=== PATIENT | female | born 1950 | race Caucasian/White ===

== ENCOUNTER 2019-02-18 16:26 | Emergency (ER) | payer MEDICARE ==
[~2019-02-18 16:26] MED LIST: ATIVAN0.5 MG PO; BUDEPRION XL150 MG PO; BUPROPION HCL150 M2 PO; COZAAR100 MG PO; CRESTOR20 M1 PO; CYMBALTA60 MG PO; DULOXETINE HCL60 MG PO; PROTONIX TR40 MG PO; VITAMIN D32000 UNIT PO
[2019-02-18 17:01] LABS: BASO % 0.7 % (0.0-1.0); EOS # 0.1 10*3/uL (0.0-0.4); EOS % 1.8 % (1.0-4.0); HEMATOCRIT 44.1 % (37.0-47.0); HEMOGLOBIN 15.3 g/dl (12.0-16.0); LYMPH # 1.2 10*3/uL (1.3-4.4); LYMPH % 21.1 % (27.0-41.0); MEAN CELL VOLUME 89.1 fl (81.0-99.0); MEAN CORPUSCULAR HGB 30.9 pg (27.0-31.0); MEAN CORPUSCULAR HGB CONC 34.7 g/dl (33.0-37.0); MEAN PLATELET VOLUME 10.2 fl (9.6-12.3); MONO # 0.4 10*3/uL (0.1-1.0); MONO % 7.7 % (3.0-9.0); NEUT # 3.9 10*3/uL (2.3-7.9); NEUT % 68.5 % (47.0-73.0); PLATELET COUNT AUTOMATED 113 10*3/uL (130-400); RED BLOOD COUNT 4.95 10*6/uL (4.10-5.10); RED CELL DISTRI WIDTH 12.4 % (0-14.5); WHITE BLOOD COUNT 5.7 10*3/uL (4.8-10.8)
[2019-02-18 17:16] LABS: ALBUMIN 4.2 gm/dl (3.1-4.5); ALKALINE PHOSPHATASE 80 U/L (45-117); BUN 17 mg/dl (7-24); CHLORIDE 109 mmol/L (98-107); CREATININE 1.12 mg/dL (0.55-1.02); POTASSIUM 3.7 mmol/L (3.5-5.1); SGOT/AST 48 IU/L (3-35); SGPT/ALT 76 U/L (12-78); SODIUM 141 mmol/L (136-145); TOTAL PROTEIN 6.7 gm/dL (6.4-8.2)
[2019-02-18 17:24] LABS: ETHYL ALCOHOL < 3.0 mg/dl (<3)
[2019-02-18 18:27] LABS: BILIRUBIN NEGATIVE (NEGATIVE); BLOOD NEGATIVE (NEGATIVE); CLARITY CLEAR (CLEAR); COLOR YELLOW (YELLOW); GLUCOSE NEGATIVE (NEGATIVE); KETONE 1+ (NEGATIVE); LEUKO ESTERASE 1+ (NEGATIVE); NITRITE NEGATIVE (NEGATIVE); SPECIFIC GRAVITY >= 1.030 (1.005-1.030)
[2019-02-18 18:35] LABS: BACTERIA 2+; CALCIUM OXALATE CRYSTALS 1+; MUCOUS TRACE; RBC 0-2 rbc/hpf (0-2); WBC 16-20 wbc/hpf (0-5)
[2019-02-18 19:04] LABS: URINE AMPHETAMINES < 1000 (1000ng/ml); URINE BARBITURATES < 200 (200ng/ml); URINE BENZODIAZEPINES > 200 (200ng/ml); URINE CANNABINOIDS (THC) < 50 (50ng/ml); URINE COCAINE < 300 (300ng/ml); URINE METHADONE < 300 (300ng/ml); URINE OPIATES < 300 (300ng/ml)
[2019-02-18 19:14] LABS: URINE PHENCYCLIDINE < 25 (25ng/ml)
[2019-03-01] MEDS ORDERED: CLONAZEPAM0.5 M2 PO (08:31)
[2019-03-01] MEDS ORDERED: ARIPIPRAZOLE10 MG PO (08:31)
[2019-03-01] MEDS ORDERED: DULOXETINE HCL60 MG PO (08:31)
[2019-03-01] MEDS ORDERED: BUDEPRION XL150 MG PO (08:31)
== END 2019-02-19 00:18 | disposition home health service (06) ==
LOC: ED 16:26
PROVIDERS: Emergency Medicine
DX: F32.9 Major depressive disorder, single episode, unspecified (principal); F41.9 Anxiety disorder, unspecified; F44.9 Dissociative and conversion disorder, unspecified; I25.10 Atherosclerotic heart disease of native coronary artery without angina pectoris; I10 Essential (primary) hypertension; E78.5 Hyperlipidemia, unspecified; K21.9 Gastro-esophageal reflux disease without esophagitis; Z79.899 Other long term (current) drug therapy

== ENCOUNTER 2019-07-19 15:55 | Inpatient (IN) | payer MEDICARE ==
[~2019-07-19] VITALS: Ht 167.6 cm; Wt 87.5 kg
[~2019-07-19 15:55] MED LIST changes: +ARIPIPRAZOLE10 MG PO; +CLONAZEPAM0.5 M2 PO
--- NOTE | 2019-07-19 16:15 | NUR ---
ASHANTI THIBODEAUX She a 69 year old F admitted via wheel chair from the EMERGENCY ROOM as a voluntary admission. Arrived on unit at 1615. ALLERGIES: NKA. Vital signs are: 97.1-86-18 150/90 SPO2 96%RA. The client signed the following forms with stated understanding: Authorization For The Release of Medical Information, Clothing List, Consent to Voluntary Admission and Hospitalization, Consent and Release Forms/Receipt of Rights, Acknowledgement of Advance Directive Information, Behavioral Health Consent Form, and Informed Consent of Medications. Admitted under the services of Dr. NENA KNIGHT,[facility]. A search was conducted and hazardous articles were removed. Client was oriented to the unit. CYN HUTCHISON
[2019-07-19] MEDS ORDERED: REXULTI0.5 MG PO (16:38)
[2019-07-19 16:51] VITALS: BP 150/90
[2019-07-19 17:02] VITALS: BP 150/90
--- NOTE | 2019-07-19 17:22 | NUR ---
HOSPITALIST NUMBER ONE MADE AWARE OF NEW CONSULT FOR MEDICAL MANAGEMENT.
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
[2019-07-19 19:45] VITALS: BP 152/89
--- NOTE | 2019-07-19 20:27 | NUR ---
PM/EVENING PT LATE ADMIT UNABLE TO ATTEND PM DUE TO NOT BEING ADMITTED UNTIL AFTER. PT CHOSE NOT TO ATTEND EVENING GROUP AND STATED "4 HOURS OF SLEEP IS NOT ENOUGH I NEED TO GET SOME REST" PT ASSESSMENT COMPLETED PRIOR TO EVENING GROUP. PT WILL BE ENOCURAGED TO ATTEND AN DPARTICIPATE IN AM GROUP.
--- NOTE | 2019-07-20 00:14 | NUR ---
24 HR chart check completed.
--- NOTE | 2019-07-20 05:06 | NUR ---
PT SLEPT 7 HOURS.
[2019-07-20 06:40] LABS: BASO % 1.1 % (0.0-1.0); EOS # 0.1 10*3/uL (0.0-0.4); EOS % 3.7 % (1.0-4.0); HEMATOCRIT 42.4 % (37.0-47.0); HEMOGLOBIN 13.9 g/dl (12.0-16.0); LYMPH # 1.1 10*3/uL (1.3-4.4); LYMPH % 28.2 % (27.0-41.0); MEAN CELL VOLUME 91.4 fl (81.0-99.0); MEAN CORPUSCULAR HGB CONC 32.8 g/dl (33.0-37.0); MEAN PLATELET VOLUME 9.8 fl (9.6-12.3); MONO # 0.4 10*3/uL (0.1-1.0); MONO % 9.7 % (3.0-9.0); NEUT # 2.2 10*3/uL (2.3-7.9); NEUT % 57.3 % (47.0-73.0); PLATELET COUNT AUTOMATED 107 10*3/uL (130-400); RED BLOOD COUNT 4.64 10*6/uL (4.10-5.10); RED CELL DISTRI WIDTH 12.5 % (0-14.5); WHITE BLOOD COUNT 3.8 10*3/uL (4.8-10.8)
[2019-07-20 06:50] LABS: ALBUMIN 3.8 gm/dl (3.1-4.5); CREATININE 1.17 mg/dL (0.55-1.02); POTASSIUM 3.8 mmol/L (3.5-5.1); TOTAL PROTEIN 6.5 gm/dL (6.4-8.2)
[2019-07-20 06:59] LABS: THYROID STIM HORMONE (HS) 1.95 uIU/ml (0.358-4.75)
--- NOTE | 2019-07-20 07:15 | NUR ---
URINE SPECIMEN COLLECTED. URINE YELLOW WITH NO ODOR NOTED. URINE OUTPUT OF 150ML. PATIENT WITH NO COMPLAINTS OF DYSURIA
[2019-07-20 07:46] VITALS: BP 144/76
[2019-07-20 07:50] LABS: VITAMIN D, 25-HYDROXY 34.3 ng/mL (30-100)
[2019-07-20 08:00] LABS: URINE AMPHETAMINES < 1000 (1000ng/ml); URINE BARBITURATES < 200 (200ng/ml); URINE BENZODIAZEPINES < 200 (200ng/ml); URINE CANNABINOIDS (THC) < 50 (50ng/ml); URINE COCAINE < 300 (300ng/ml); URINE METHADONE < 300 (300ng/ml); URINE OPIATES < 300 (300ng/ml)
[2019-07-20 08:03] LABS: URINE PHENCYCLIDINE < 25 (25ng/ml)
--- NOTE | 2019-07-20 08:15 | NUR ---
Treatment Plan meeting was held this a.m. with Dr. Boo, RN, AT, HOGSHEAD FILLER-S and Carpet Layer Helper in attendance. Plan for discharge at the end of the week. Pt. came to [facility] from Home and will return home at Discharge.
--- NOTE | 2019-07-20 10:48 | NUR ---
DR BUENROSTRO AND TEAM ON UNIT TO SEE PATIENT
--- NOTE | 2019-07-20 11:24 | NUR ---
P-TEARFUL, ISOLATIVE, WITHDRAWN I-REDIRECTION WITH 1:1 THERAPEUTIC INTERVENIONS AND PRESENT REALITY. EDUCATE AND ENCOURAGE MEDICATION COMPLIANCE R-PATIENT SHOWERED THIS SHIFT. PATIENT ISOLATIVE TO ROOM THROUGHOUT SHIFT. PATIENT TEARFUL AT TIMES THROUGHOUT SHIFT. PATIENT WITH DEPRESSED MOOD BUT STATES "I FEEL A LITTLE BETTER RIGHT NOW AND I'M HERE TO GET THE HELP I NEED". PATIENT NOT WANTING TO DISCUSS ISSUES WITH HER FIANCE AT THIS TIME. PATIENT CONTINUES ON LEVAQUIN PO FOR +UTI. NO ADVERSE REACTION. PATIENT MEDICATION COMPLIANT P-CONTINUE TO ENCOURAGE MEDICATION COMPLIANCE, ENCOURAGE GROUP THERAPY WHILE AWAKE
--- NOTE | 2019-07-20 11:47 | NUR ---
AM GROUP/CURRENT EVENTS PT CHOSE NOT TO ATTEND MORNING GROUP THERAPY. PT STAYED IN BED NAPPING
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
--- NOTE | 2019-07-20 17:30 | NUR ---
PATIENT VERBALIZED HAVING INCREASED ANXIETY AND UNABLE TO STOP CRYING. PATIENT REQUESTED MEDICATION FOR ANXIETY. PATIENT MEDICATED WITH ATIVAN 1MG PO AND MEDICATION WITH EFFECTIVE RESULTS AT THIS TIME
[2019-07-20 19:52] VITALS: BP 143/84
--- NOTE | 2019-07-21 03:11 | NUR ---
P: POOR COPING SKILLS, ISOLATIVE, I &R : TALKED WITH PT THIS EVENING IN REFERENCE TO WHAT SHE VIEWS FOR HER OWN SELF WORTH WITHOUT HER FIANCE OR ANYONE ELSE BEING INVOLVED. PT STATED THAT SHE MAKES HER FRIENDS LAUGH AND IS KNOWN FOR BEING HAPPY, BUT ADMITTED THAT SHE DOES THAT TO COVER UP HER OWN SADNESS. SHE ADMITTED THAT HER FRIENDS ARE THERE FOR HER EVEN WHEN SHE IS DOWN. PT STATED THAT THIS IS NOT HOW SHE PICTURED HER LIFE AT THIS AGE, THIS NURSE ENCOURAGED HER TO LOOK TO HERSELF FOR HAPPINESS AND TO DECIDE WHAT SHE IS WILLING TO TOLERATED FROM THOSE AROUND HER. PT STATED SHE ISN'T HAPPY ABOUT SITUATION WITH FIANCE AND THAT HE DOES THIS FREQUENTLY TO HER, TELLING HER TO DO SHE PLEASES WITH THE HOUSE AND HE GOES AND WORKS OUTSIDE. PT STATED THAT SHE DOESN'T VALUE HERSELF AND NEEDS TO FIGURE OUT HOW TO DO SO. ENCOURAGED TO THINK AND WRITE THINGS DOWN. CONTINUE TO MONITOR. PT HAD NO TEARFUL EPISODES, SHE DID COME DOWN TO LOUNGE TO INTERACT WITH STAFF AND WATCH T.V. AFTER OTHER PEERS HAD GONE TO BED. PT STATED IT'S HARD BECAUSE THEY ARE WORSE OFF THEN HER. CONTINUE TO MONITOR 15 MIN CHECKS
--- NOTE | 2019-07-21 06:07 | NUR ---
PATIENT OBSERVED ON Q 15 MIN CHECKS TO HAVE SLEPT APPROX 7 HOURS WITH NO AWAKENINGS OR SIGNS AND SYMPTOMS OF DISTRESS NOTED.
[2019-07-21 07:29] VITALS: BP 129/82
--- NOTE | 2019-07-21 08:15 | NUR ---
Treatment Plan meeting was held this a.m. with Dr. Boo, RN, AT, EMPLOYEE TRAINING SPECIALIST-S and Director Of Contracts in attendance. Plan for discharge Next week. Pt. will return home at discharge with Follow Up.
--- NOTE | 2019-07-21 10:08 | NUR ---
P: PT ISOLATIVE TO ROOM AT TIMES THROUGHOUT THE DAY, REFUSING TO PARTICIPATE IN AM GROUP/ACTIVITIES. PT TEARFUL AT TIMES I: ENCOURAGE GROUP PARTICIPATION AND SOCIALIZATION, PROVIDE EMOTIONAL SUPPORT AND 1:1 FOR PT TO VOICE FEELINGS R: PT ALERT TO PERSON, PLACE AND TIME. PT MED COMPLIANT WITHOUT DIFFICULTY, MED EDUCATION PROVIDED. PT CONTINUES TO REFUSE TO PARTICIPATE IN AM GROUP/ACTIVITIES. PT DENIES ANY SUICIDAL THOUGHTS, VERBALLY CONTRACTS FOR SAFETY IF SUCH THOUGHTS ARISE. PT AMBULATORY THROUGHOUT UNIT, GAIT STEADY. PT CONTINENT OF BOWEL AND BLADDER. P: MONITOR PT BEHAVIORS ON Q15 MIN SAFETY CHECKS, ENCOURAGE MED COMPLIANCE AND PROVIDE MED EDUCATION, PROVIDE EMOTIONAL SUPPORT AND 1:1 FOR PT TO VOICE FEELINGS, ENCOURAGE GROUP PARTICIPATION AND SOCIALIZATION.
--- NOTE | 2019-07-21 10:31 | NUR ---
Met with pt this AM for individual therapeutic time. Pt reported that she continues to experience high anxiety and that she woke up hourly last night with racing thoughts. Discussed this further. Guided pt to discussion of codependency and provided a definition of such. Encouraged pt to keep an open mind about this possibility of being codependent and provided pt with the book Codependent No More. Encouraged pt to absorb the self-care aspect provided in the book. Also informed pt that Alma, shop coordinator, has video/audio available of Codependent No More that pt could be used by pt. Pt was agreeable to this.
--- NOTE | 2019-07-21 10:32 | NUR ---
DR. BUENROSTRO ON UNIT TO ASSESS PT, UPDATE PROVIDED.
--- NOTE | 2019-07-21 11:42 | NUR ---
AM GROUP/DOROTHY OSMAN PT DID NOT ATTEND MORNING GROUP THERAPY. PT WAS IN BED NAPPING
--- NOTE | 2019-07-21 15:39 | NUR ---
NEGIN WHEELER/DOROTHY OSMAN PT ATTENDED AFTERNOON GROUP THERAPY AND PARTICIPATED BY PLAYING Globevestor. PT LEFT GROUP EARLY TO MEET WITH HER SPEECH PATHOLOGY TEACHER. PT EXPRESSED NO ANXIOUS THOUGHTS OR SUICIDAL IDEATIONS WHILE IN GROUP
[2019-07-21 19:26] VITALS: BP 122/83
--- NOTE | 2019-07-22 01:50 | NUR ---
NO ADVERSE BEHAVIORS NOTED. PATIENT ALERT AND ORIENTED X4. PT CALM, COOPERATIVE, AND INTERACTIVE. MOOD STABLE. PT DENIES SI/HI AND HALLUCINATIONS. NO NOTED RESPONDING TO INTERNAL STIMULI. MEDICATION COMPLIANT WITHOUT DIFFICULTY AFTER REVIEW. NO PHYSICAL COMPLAINTS VOICED. PATIENT CURRENTLY LAYING DOWN WITH EYES CLOSED, RESPIRATIONS EASY AND REGULAR. NO SIGNS OR SYMPTOMS OF DISTRESS NOTED. PLAN IS TO CONTINUE TO MONITOR MOOD AND BEHAVIORS. PROVIDE 1:1 WITH SUPPORT NEEDED. ENCOURAGE MEDICATION COMPLIANCE. MAINTAIN Q 15 MIN CHECKS.
[2019-07-22 07:45] VITALS: BP 136/74
--- NOTE | 2019-07-22 11:49 | NUR ---
AM/EXERCISE/CRAFT/MUSIC PT ATTENDED AND PARTICIPATED IN ALL GROUP ACTIVITY'S. PT PLEASNAT AND ON TASK. PT JOKING AND SMILING. PT EXPRESSED NO S.I. OR ANXIETY AT THIS TIME. PT WILL CONTINUE TO ATTEND AND PARTICIPATE IN FUTURE GROUP ACTIVITY'S.
[2019-07-22 20:00] VITALS: BP 143/68
--- NOTE | 2019-07-23 04:16 | NUR ---
24 HR chart check completed.
--- NOTE | 2019-07-23 06:17 | NUR ---
SLEPT APPROX 7.5 HRS
--- NOTE | 2019-07-23 06:47 | NUR ---
EASILY AWAKENED FOR MEDICATION. DENIES SUICIDAL IDEATIONS AT THIS TIME.
[2019-07-23 07:44] VITALS: BP 148/87
--- NOTE | 2019-07-23 08:15 | NUR ---
Treatment Plan meeting was held this a.m. with Dr. Boo, RN, AT, SENIOR TECHNICAL RECRUITER-S and Anchor Tack Puller in attendance. Plan for discharge next week. Pt. will return home at discharge.
--- NOTE | 2019-07-23 11:02 | NUR ---
DR BHAGAT AND TEAM ON UNIT TO SEE PATIENT
--- NOTE | 2019-07-23 11:53 | NUR ---
AM GROUP/EXERCISE AND BRAIN GAMES PT ATTENDED MORNING GROUP THERAPY AND PARTICIPATED IN ALL ACTIVITIES. PT EXPRESSED NO SUICIDAL IDEATIONS NOR EXHIBITED ANY ANXIETY WHILE IN GROUP. PT WAS ANIMATED AND JOKING.
[2019-07-23 19:07] VITALS: BP 134/73
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
--- NOTE | 2019-07-24 04:15 | NUR ---
24 HR chart check completed.
--- NOTE | 2019-07-24 06:15 | NUR ---
SLEPT WELL PAST [id number]
[2019-07-24 07:49] VITALS: BP 141/62
--- NOTE | 2019-07-24 10:53 | NUR ---
DR. BHAGAT ON UNIT TO ASSESS PATIENT.
--- NOTE | 2019-07-24 11:59 | NUR ---
AM GROUP/DISCUSSION/COPING PT ATTENDED AND PARTICIPATED IN ALL GROUP ACTIVITY'S. PT PLEASANT AND ON TASK. PT EXPRESSES "I HAVE BEEN FEELING PRETTY GOOD LATELY". PT EXPRESSES NO SUICIDAL IDEATIONS OR ANXIETY AT THIS TIME. PT WILL CONTINUE TO BE ENCOURAGED TO ATTEND AN DPARTICIPATE IN FUTURE GROUP SESSIONS.
--- NOTE | 2019-07-24 15:21 | NUR ---
Shift chart check completed.
--- NOTE | 2019-07-24 15:54 | NUR ---
PM GROUP/LEISURE/FOOTBALL PT ATTENDED AND PARTICIPATED BY WORKING ON PROJECT FROM MORNING GROUP AND CONVERSATING WITH PEERS. PT PLEASANT WITH NO S.I. OR ANXIETY EXPRESSED. PT WILL CONTINUE TO ATTEND AN DPARTICIPATE IN GROUP SESSIONS.
--- NOTE | 2019-07-24 17:31 | NUR ---
P: DEPRESSED MOOD I: ONE ON ONE FOR EMOTIONAL SUPPORT AND ENCOURAGE GROUP SESSIONS AND SOCIAL INTERACTIONS R: EFFECTIVE. PATIENT IS ALERT TO PERSON, PLACE, TIME AND SITUATION; ABLE TO VOICE NEED. MOOD IS SLIGHTLY DEPRESSED, IMPROVEMENT NOTIFIED. DENIES ANY HALLUCINATIONS, DELUSIONS, HI/SI OR PAIN. INDEPENDENT WITH ACTIVITIES OF DAILY LIVING, CONTINENT OF BOWEL AND BLADDER. SET UP FOR MEALS, INTAKES ARE GOOD WITH ADEQUATE FLUIDS. MEDICATION COMPLAINT WITH EDUCATION. Q 15 MINUTE SAFETY CHECKS MAINTAINED. AMBULATORY WITH STEADY GAIT. INTERACTIVE WITH STAFF AND OTHER PATIENTS. ATTTENDS AND PARTICIPATE IN GROUP SESSION. P: CONTINUE TO MONITOR MOOD AND VOICED STATEMENT OF SI. PROVIDE ONE ON ONE FOR EMOTIONAL SUPPORT AND ENCOURAGE SOCIAL INTERACTIONS.
[2019-07-24 20:07] VITALS: BP 121/65
--- NOTE | 2019-07-24 21:57 | NUR ---
P CONFUSION, HOPELESS HELPLESS I ONE ON ONE REDIRECTION, ENCOURAGED SOCIALIZATION R PATIENT WATCHING TV IN DINING ROOM WITH INTERACTING WITH STAFF AND PEERS. ALERT TO PERSON AND SITUATION. NO SUICIDAL THOUGHT NOTED. NO AGGRESSION OR AGITATION. Q15 MIN SAFETY CHECKS CONTINUED. MEDICATION COMPLIANT. DENIES PAIN OR HALLUCINATION. P REDIRECT/REORIENT ONE ON ONE PRN. MONITOR FOR SUICIDAL THOUGHT OR IDEATION.
--- NOTE | 2019-07-25 05:23 | NUR ---
Patient slept 7hrs without interruption during shift.
[2019-07-25 07:53] VITALS: BP 150/84
--- NOTE | 2019-07-25 10:01 | NUR ---
DR. BHAGAT ON UNIT TO ASSESS PATIENT.
--- NOTE | 2019-07-25 12:14 | NUR ---
AM GROUP/EXERCISES/BRAIN GAMES PT ATTENDED AND PARTICIPATED IN ALL ACTIVITIES. PT PLEASANT AND ON TASK WITH NO EXPRESSIONS OF S.I. [place] ANXIETY. PT WILL CONTINUE TO ATTEND AN DPARTICIPATE IN FUTURE GROUP SESSIONS.
--- NOTE | 2019-07-25 18:12 | NUR ---
P: DEPRESSED MOOD/ISOLATIVE AT TIMES. I: ONE ON ONE FOR EMOTIONAL SUPPORT AND ENCOURAGE GROUP SESSIONS AND SOCIAL INTERACTIONS R: EFFECTIVE. PATIENT IS ALERT TO PERSON, PLACE, TIME AND SITUATION; ABLE TO VOICE NEED. MOOD IS SLIGHTLY DEPRESSED AND ISOLATIVE AT TIMES TODAY. DENIES ANY HALLUCINATIONS, DELUSIONS, HI/SI OR PAIN. INDEPENDENT WITH ACTIVITIES OF DAILY LIVING, CONTINENT OF BOWEL AND BLADDER. SET UP FOR MEALS, INTAKES ARE GOOD WITH ADEQUATE FLUIDS. MEDICATION COMPLAINT WITH EDUCATION. Q 15 MINUTE SAFETY CHECKS MAINTAINED. AMBULATORY WITH STEADY GAIT. INTERACTIVE WITH STAFF AND OTHER PATIENTS. ATTTENDS AND PARTICIPATE IN GROUP SESSION. P: CONTINUE TO MONITOR MOOD AND VOICED STATEMENT OF SI. PROVIDE ONE ON ONE FOR EMOTIONAL SUPPORT AND ENCOURAGE SOCIAL INTERACTIONS.
[2019-07-25 20:07] VITALS: BP 140/88
--- NOTE | 2019-07-25 22:02 | NUR ---
Patient alert and oriented x4. Mood slightly depressed at times. Patient denies hallucinations or suicidal ideations at this time. Patient isolative to room this evening. Patient compliant with medications without any difficulty. Provided 1:1 for emotional support. Plan to continue to encourage medication compliance and continue offering emotional support. Also encourage more interaction with staff and other patients. Will continue to monitor mood/behavior. See [facility] for furhter documentation.
--- NOTE | 2019-07-26 00:14 | NUR ---
24 HR chart check completed.
--- NOTE | 2019-07-26 05:24 | NUR ---
Patient slept approx. 7 1/2 hours throughout shift without any interruptions. Q 15 minutes safety checks continued and maintained.
[2019-07-26 07:03] LABS: BASO % 0.8 % (0.0-1.0); EOS # 0.1 10*3/uL (0.0-0.4); EOS % 3.6 % (1.0-4.0); HEMATOCRIT 39.1 % (37.0-47.0); HEMOGLOBIN 13.2 g/dl (12.0-16.0); LYMPH # 1.2 10*3/uL (1.3-4.4); LYMPH % 33.5 % (27.0-41.0); MEAN CELL VOLUME 90.9 fl (81.0-99.0); MEAN CORPUSCULAR HGB 30.7 pg (27.0-31.0); MEAN CORPUSCULAR HGB CONC 33.8 g/dl (33.0-37.0); MEAN PLATELET VOLUME 10.2 fl (9.6-12.3); MONO # 0.3 10*3/uL (0.1-1.0); MONO % 7.8 % (3.0-9.0); NEUT # 1.9 10*3/uL (2.3-7.9); PLATELET COUNT AUTOMATED 102 10*3/uL (130-400); RED CELL DISTRI WIDTH 12.5 % (0-14.5); WHITE BLOOD COUNT 3.6 10*3/uL (4.8-10.8)
[2019-07-26 07:56] VITALS: BP 109/65; BP 155/80
--- NOTE | 2019-07-26 08:30 | NUR ---
Treatment Plan meeting was held with Dr. Boo, RN, AT, COAL CONVEYOR OPERATOR-S and Front Desk Supervisor. Plan for discharge Friday with return home. Follow up appointments to be scheduled.
--- NOTE | 2019-07-26 11:45 | NUR ---
AM GROUP PT CHOSE NOT TO ATTEND MORNING GROUP THERAPY. PT STAYED IN BED RESTING.
--- NOTE | 2019-07-26 14:34 | NUR ---
P: ISOLATIVE TO ROOM, DEPRESSED MOOD STATING "I THOUGHT I WAS GOING HOME, I JUST WANT TO GO HOME TO BE BACK TO NORMAL" I: ONE ON ONE FOR EMOTIONAL SUPPORT, ENCOURAGE GROUP PARTICIPATION AND SOCIAL INTERACTION. R: PATIENT INTERACTIVE WITH STAFF. PATIENT IS ALERT TO PERSON, PLACE, TIME AND SITUATION; ABLE TO VOICE NEEDS. MOOD IS DEPRESSED WITH FLAT AFFECT. DENIES ANY HALLUCINATIONS, DELUSIONS, HI/SI OR PAIN. MEDICATION COMPLAINT WITH EDUCATION PROVIDED. PATIENT IN HER ROOM READING A BOOK ON CODEPENDENCE. Q 15 MINUTE SAFETY CHECKS MAINTAINED. INDEPENDENT WITH ACTIVITIES OF DAILY LIVING, CONITNENT OF BOWEL AND BLADDER, SET UP FOR MEALS, INTAKES ARE GOOD WITH ADEQUATE FLUIDS. AMBULATORY WITH STEADY GAIT. P: CONTINUE TO MONITOR MOOD AND VOICED THOUGHTS OF SUICIDAL IDEATIONS. PROVIDE ONE ON ONE FOR EMOTIONAL SUPPORT. ENCOURAGE GROUP PARTICIPATION AND UTILIZE COPING SKILL.
--- NOTE | 2019-07-26 15:44 | NUR ---
NEGIN WHEELER/SO PT DID NOT ATTEND AFTERNOON GROUP THERAPY. PT STAYED IN HER ROOM.
--- NOTE | 2019-07-26 15:53 | NUR ---
Individual time spent with pt this afternoon. Discussed pt's current emotions. Pt stated that she feels ready for discharge but did voice concern about continuing anxiety. Discussed coping skills for pt when she returns home.
[2019-07-26 20:00] VITALS: BP 136/73
--- NOTE | 2019-07-26 20:52 | NUR ---
EVENING/COLOR THERAPY/LEISURE PT IN ATTENDANCE AND PARTICIPATED FOR HALF OF GROUP TALKING AND WORKIN ON WORDSEARCH. PT DID NOT EXPRESS ANY S.I. [place] ANXIETY AT THIS TIME. PT WILL CONTINUE TO BE ATTEND AN DPARTICIPATE IN FUTURE GROUP SESSIONS.
--- NOTE | 2019-07-26 23:41 | NUR ---
NO ADVERSE BEHAVIORS NOTED. PT ALERT AND ORIENTED X4. PT CALM, COOPERATIVE, AND INTERACTIVE. DURING 1:1 PATIENT STATED SHE IS DOING OKAY TODAY, SHE WAS ONLY UPSET EARLIER CAUSE SHE WANTED TO GO HOME BUT IS OTHERWISE FINE. PT DENIES SI/HI AND HALLUCINATIONS, NO NOTED RESPONDING TO INTERNAL STIMULI. MEDICATION COMPLIANT WITHOUT DIFFICULTY AFTER REVIEW. NO PHYSICAL COMPLAINTS VOICED. PT CURRENTLY LAYING DOWN WITH EYES CLOSED. RESPIRATIONS EASY AND REGULAR, NO SIGNS OR SYMPTOMS OF DISTRESS NOTED. PLAN IS TO CONTINUE TO PROVIDE 1:1 WITH SUPPORT NEEDED. ENCOURAGE MEDICATION COMPLIANCE AND EDUCATE. MAINTAIN Q 15 MIN CHECKS.
--- NOTE | 2019-07-27 05:59 | NUR ---
PATIENT OBSERVED ON Q 15 MIN CHECKS TO HAVE SLEPT APPROX 7 HOURS WITH NO AWAKENINGS OR SIGNS AND SYMPTOMS OF DISTRESS NOTED.
[2019-07-27 07:39] VITALS: BP 133/80
--- NOTE | 2019-07-27 08:00 | NUR ---
DR. FAUSTIN ON UNIT TO ASSESS PATIENT.
--- NOTE | 2019-07-27 08:15 | NUR ---
Treatment Plan meeting was held this a.m. with Dr. Boo, RN, AT, RECRUITING SCHEDULER-S and Secondary Art Teacher in attendance. Plan for discharge today. Pt. will return home at discharge, follow up appointments have been scheduled.
--- NOTE | 2019-07-27 08:45 | NUR ---
Patient resting quietly with no c/o discomfort. Respirations easy and regular. Vital signs stable. No overt distress. CARLOZ SALAS
--- NOTE | 2019-07-27 09:04 | NUR ---
DR. SOSA NOTIFIED OF PATIENT BEING DISCHARGED, TO INFORM DR. FAUSTIN OF PATIENT'S DISCHARGE TODAY.
[2019-07-27] MEDS ORDERED: DULOXETINE HCL60 MG PO (09:27)
[2019-07-27] MEDS ORDERED: CLONAZEPAM1 MG PO (09:27)
[2019-07-27] MEDS ORDERED: BUDEPRION XL150 MG PO (09:27)
[2019-07-27] MEDS ORDERED: ARIPIPRAZOLE10 MG PO (09:27)
--- NOTE | 2019-07-27 11:50 | NUR ---
AM GROUP PT ATTENDED MORNING GROUP THERAPY AND PARTICIPATED BY WORKING A JIGSAW PUZZLE. PT WAS TALKATIVE BUT ON TASK. PT EXPRESSED NO ANXIETY OR SUICIDAL IDEATIONS WHILE IN GROUP. PT IS SET TO BE DISCHARGED FROM THE UNIT SOME TIME TODAY
--- NOTE | 2019-07-27 14:28 | NUR ---
ALL DISCHARGE INSTRUCTIONS REVIEWED WITH PATIENT AND SIGNED. ALL BELONGING GATHERED AND SIGN FOR RETURNING. PATIENT ASSISTED IN WHEELCHAIR WITH ALL BELONGING AND DISCHARGE INSTRUCTIONS. OFF UNIT WITH STAFF ASSIST WITH REPULPING SUPERVISOR TO PRIVATE VEHICLE.
--- NOTE | 2019-07-27 14:53 | NUR ---
Met with pt individually prior to pt's discharge. Pt confirmed that she feels ready for discharge. Encouraged pt to have a plan in place for the . Spoke to pt about her personal goals. During conversation, pt vascilated between it being final with her fiance to expecting her fiance to show up at her house and their relationship moving forward. Encouraged pt to focus on her self-care and self-improvement.
--- NOTE | 2019-07-27 14:58 | NUR ---
Patient discharged today to home. Follow-up was scheduled at [facility] for psychiatry and with Dr Julieta Escalera for counseling. Pt's anxiety decreased and her mood improved while at [facility]. Pt did isolate at times but also participated in some of the programming.
--- NOTE | 2019-07-27 15:12 | NUR ---
Discharge Paperwork Faxed to [facility] and Dr. Ward office.
== END 2019-07-27 14:28 | disposition home or self-care (01) | DRG 885 ==
LOC: 3N 15:55
PROVIDERS: Internal Medicine; ADMIT Psychiatry & Neurology Psychiatry
DX: F33.2 Major depressive disorder, recurrent severe without psychotic features (principal); R45.851 Suicidal ideations; N30.01 Acute cystitis with hematuria; I10 Essential (primary) hypertension; I25.10 Atherosclerotic heart disease of native coronary artery without angina pectoris; F34.1 Dysthymic disorder; F41.9 Anxiety disorder, unspecified; K21.9 Gastro-esophageal reflux disease without esophagitis; E78.5 Hyperlipidemia, unspecified; Z91.5 Personal history of self-harm; Z90.710 Acquired absence of both cervix and uterus; Z98.49 Cataract extraction status, unspecified eye; Z79.899 Other long term (current) drug therapy

== ENCOUNTER → 2020-01-25 | Outpatient (CLI) | payer MEDICARE ==
[~2020-01-25] MED LIST changes: +CLONAZEPAM1 MG PO; +REXULTI0.5 MG PO
[2020-01-25 12:45] LABS: ALBUMIN 4.2 gm/dl (3.1-4.5); CREATININE 1.16 mg/dL (0.55-1.02); POTASSIUM 4.4 mmol/L (3.5-5.1); TOTAL PROTEIN 7.1 gm/dL (6.4-8.2)
== END | disposition home or self-care (01) ==
LOC: LAB 12:02
PROVIDERS: Internal Medicine
DX: I10 Essential (primary) hypertension (principal); E78.49 Other hyperlipidemia

== ENCOUNTER 2020-11-17 15:11 | Inpatient (IN) | payer MEDICARE ==
[~2020-11-17] VITALS: Ht 167.6 cm; Wt 84.4 kg
[2020-11-17 15:18] VITALS: BP 135/66
[2020-11-17 16:14] LABS: BASO # 0.1 10*3/uL (0.0-0.1); BASO % 1.1 % (0.0-1.0); EOS # 0.2 10*3/uL (0.0-0.4); EOS % 3.8 % (1.0-4.0); HEMATOCRIT 45.4 % (37.0-47.0); LYMPH # 1.2 10*3/uL (1.3-4.4); LYMPH % 23.4 % (27.0-41.0); MEAN CELL VOLUME 88.3 fl (81.0-99.0); MEAN CORPUSCULAR HGB CONC 33.9 g/dl (33.0-37.0); MEAN PLATELET VOLUME 9.8 fl (9.6-12.3); MONO # 0.6 10*3/uL (0.1-1.0); MONO % 10.9 % (3.0-9.0); NEUT # 3.2 10*3/uL (2.3-7.9); NEUT % 60.4 % (47.0-73.0); PLATELET COUNT AUTOMATED 169 10*3/uL (130-400); RED BLOOD COUNT 5.14 10*6/uL (4.10-5.10); RED CELL DISTRI WIDTH 12.3 % (0-14.5); WHITE BLOOD COUNT 5.3 10*3/uL (4.8-10.8)
[2020-11-17 16:29] LABS: ALBUMIN 4.2 gm/dl (3.1-4.5); ALKALINE PHOSPHATASE 92 U/L (45-117); BUN 21 mg/dl (7-24); CHLORIDE 107 mmol/L (98-107); CREATININE 1.23 mg/dL (0.55-1.02); ETHYL ALCOHOL < 3.0 mg/dl (<3); POTASSIUM 4.4 mmol/L (3.5-5.1); SGOT/AST 83 IU/L (3-35); SGPT/ALT 117 U/L (12-78); SODIUM 140 mmol/L (136-145); TOTAL PROTEIN 7.4 gm/dL (6.4-8.2)
[2020-11-17 16:30] LABS: ACETAMINOPHEN (TYLENOL) < 5.0 ug/ml (10-30)
[2020-11-17 16:51] LABS: BILIRUBIN Negative (Negative); BLOOD Negative (Negative); CLARITY Cloudy (Clear); COLOR Dark Yellow (Yellow); GLUCOSE Negative (Negative); KETONE Trace (Negative); LEUKO ESTERASE 2+ (Negative); NITRITE Negative (Negative)
[2020-11-17 17:02] LABS: URINE AMPHETAMINES < 1000 (1000ng/ml); URINE BARBITURATES < 200 (200ng/ml); URINE BENZODIAZEPINES < 200 (200ng/ml); URINE CANNABINOIDS (THC) < 50 (50ng/ml); URINE COCAINE < 300 (300ng/ml); URINE METHADONE < 300 (300ng/ml); URINE OPIATES < 300 (300ng/ml)
[2020-11-17 17:08] LABS: BACTERIA 2+; EPITHELIAL CELLS 31-40; MUCOUS TRACE
[2020-11-17 17:11] LABS: URINE PHENCYCLIDINE < 25 (25ng/ml)
[2020-11-17 18:05] VITALS: BP 128/70
[2020-11-17] MEDS ORDERED: ABILIFY5 MG PO (18:54)
[2020-11-17] MEDS ORDERED: WELLBUTRIN XL150 MG PO (18:55)
[2020-11-17] MEDS ORDERED: KLONOPIN0.5 MG PO (18:57)
[2020-11-17] MEDS ORDERED: ZYRTEC ALLERGY10 MG PO (18:57)
[2020-11-17] MEDS ORDERED: REXULTI1 MG PO (19:00)
[2020-11-17] MEDS ORDERED: VITAMIN D350 MC2 PO (19:00)
[2020-11-17 19:03] VITALS: BP 141/89
[2020-11-17 19:50] VITALS: BP 141/89
[2020-11-18 06:31] LABS: THYROID STIM HORMONE (HS) 2.1 uIU/ml (0.358-4.75)
[2020-11-18 07:27] VITALS: BP 103/58
[2020-11-18 08:15] LABS: VITAMIN D, 25-HYDROXY 40.6 ng/mL (30-100)
[2020-11-18 20:00] VITALS: BP 127/80
[2020-11-19 06:45] LABS: ALBUMIN 3.7 gm/dl (3.1-4.5); CREATININE 1.21 mg/dL (0.55-1.02); POTASSIUM 4.3 mmol/L (3.5-5.1); TOTAL PROTEIN 6.5 gm/dL (6.4-8.2)
[2020-11-19 07:33] VITALS: BP 128/67
[2020-11-19 20:00] VITALS: BP 126/66; BP 128/67
[2020-11-20 07:45] VITALS: BP 146/74
[2020-11-20 20:00] VITALS: BP 138/65
[2020-11-21 07:37] VITALS: BP 112/72
[2020-11-21 20:00] VITALS: BP 154/76
[2020-11-22 07:46] VITALS: BP 154/83
[2020-11-22 20:00] VITALS: BP 145/86
[2020-11-23 07:22] VITALS: BP 145/90
[2020-11-23 19:09] VITALS: BP 157/82
[2020-11-24 07:09] VITALS: BP 111/59
[2020-11-24 19:07] VITALS: BP 122/78
[2020-11-25 07:43] VITALS: BP 149/74
[2020-11-25 20:00] VITALS: BP 152/91
[2020-11-26 08:01] VITALS: BP 144/86
[2020-11-26] MEDS ORDERED: BUPROPION HCL150 M1 PO (11:26)
[2020-11-26] MEDS ORDERED: PRISTIQ50 MG PO (11:26)
[2020-11-26] MEDS ORDERED: CLONAZEPAM0.5 M2 PO (11:32)
[2020-11-26 20:00] VITALS: BP 150/85
[2020-11-27 07:47] VITALS: BP 142/89
== END 2020-11-27 13:18 | disposition home or self-care (01) | DRG 885 ==
LOC: ED 15:11 → 3N 17:45
PROVIDERS: Internal Medicine; Physician Assistant; Psychiatry & Neurology Psychiatry; ADMIT Psychiatry & Neurology Psychiatry; ATTEND Psychiatry & Neurology Psychiatry
DX: F33.2 Major depressive disorder, recurrent severe without psychotic features (principal); N17.0 Acute kidney failure with tubular necrosis; R45.851 Suicidal ideations; K21.9 Gastro-esophageal reflux disease without esophagitis; R74.01 Elevation of levels of liver transaminase levels; F41.1 Generalized anxiety disorder; Z20.822 Contact with and (suspected) exposure to COVID-19; I10 Essential (primary) hypertension; E78.5 Hyperlipidemia, unspecified; Z90.710 Acquired absence of both cervix and uterus; Z82.49 Family history of ischemic heart disease and other diseases of the circulatory system; Z79.899 Other long term (current) drug therapy